=== PATIENT | female | born 1960 | race Two or more races ===

== ENCOUNTER → 2021-02-22 | Outpatient (CLI) | payer OTHER ==
[~2021-02-22] MED LIST: CEFADROXIL500 MG PO; KETO10TA2 PO; URETRON D/S TAB1 TAB PO; URETRON DS1 TAB PO
== END | disposition home or self-care (01) ==
LOC: PPH VACUNA
DX: Z23 Encounter for immunization (principal)

== ENCOUNTER 2021-10-14 08:00 | Outpatient (CLI) | payer OTHER | END 2021-10-14 08:30 | disposition home or self-care (01) | LOC: PPH VACUNA 08:00 | PROVIDERS: ATTEND Emergency Medicine Pediatric Emergency Medicine | DX: Z23 Encounter for immunization (principal) ==

== ENCOUNTER 2024-06-25 12:16 | Outpatient (CLI) | payer OTHER | END 2024-06-25 12:26 | disposition home or self-care (01) | LOC: RAD 12:16 | PROVIDERS: ATTEND Internal Medicine Nephrology | DX: I11.9 Hypertensive heart disease without heart failure (principal); I51.7 Cardiomegaly ==

== ENCOUNTER 2024-07-02 09:19 | Outpatient (CLI) | payer OTHER | END 2024-07-02 09:29 | disposition home or self-care (01) | LOC: SONOGRAMA 09:19 → NUCLEAR 11:00 | DX: R31.29 Other microscopic hematuria (principal); K82.4 Cholesterolosis of gallbladder; R16.0 Hepatomegaly, not elsewhere classified; K76.0 Fatty (change of) liver, not elsewhere classified; I11.9 Hypertensive heart disease without heart failure; I12.9 Hypertensive chronic kidney disease with stage 1 through stage 4 chronic kidney disease, or unspecified chronic kidney disease ==

== ENCOUNTER 2024-07-02 10:20 | Outpatient (CLI) | payer OTHER | END 2024-07-02 10:21 | disposition home or self-care (01) | LOC: NUCLEAR 10:20 | DX: M81.0 Age-related osteoporosis without current pathological fracture (principal) ==